=== PATIENT | female | born 1950 | race Hispanic/Latino ===

== ENCOUNTER 2018-03-08 16:46 | Emergency (ER) | payer MEDICAID ==
--- NOTE | 2018-03-08 17:43 | RAD ---
Date of service: 03/08/2018 PROCEDURE: Radiographs of the Lumbar Spine. HISTORY: Back pain COMPARISON: No prior. FINDINGS: BONES: There is mild dextrocurvature in the lumbar spine. There is normal alignment of the lumbar vertebral bodies. There is normal lumbar lordosis. There is no acute fracture. There is diffuse bone demineralization. DISC SPACES: There is multilevel degenerative disc disease with anterior osteophytes, reduced disc heights and multilevel facet arthropathy, worse at L4-5. OTHER FINDINGS: No pathologic soft tissue calcifications. Both sacroiliac joints are normal. IMPRESSION: No acute fracture, spondylolysis or spondylolisthesis. Multilevel degenerative disc disease, worse at L4-5.
--- NOTE | 2018-03-08 18:32 | ED PDOC ---
HPI: Back Chief Complaint (Provider): Back Pain History Per: Patient History/Exam Limitations: no limitations Onset/Duration Of Symptoms: Days (x1 week) Current Symptoms Are (Timing): Still Present Additional Complaint(s): 67 year old female presents to the ED via EMS for evaluation of back pain. Patient states one week ago she was bent over sweeping and immediately felt pain in her lower back, which has progressively worsened, now radiating into both legs. She notes she has a hx of herniated discs, but has not seen a specialist for it as her back specialist years ago. 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 Additionally, she reports that 2-3 days before the pain began, she developed dysuria. Otherwise, denies hematuria, incontinence, trauma, abdominal pain, and fever. PMD: none provided <Stephen Sanchez - Last Filed: 03/08/18 18:51> <Sherry Law F - Last Filed: 03/10/18 18:25> Time Seen by Provider: 03/08/18 16:54 Chief Complaint (Nursing): Back Pain Past Medical History Reviewed: Historical Data, Nursing Documentation, Vital Signs Vital Signs: Last Vital Signs Temp 98 F 03/08/18 16:48 Pulse 64 03/08/18 16:48 Resp 16 03/08/18 16:48 BP 132/59 L 03/08/18 16:48 Pulse Ox 100 03/08/18 16:48 - Medical History PMH: Anxiety, Asthma, Back Problems, Gastritis (no medications ), HTN, Kidney Stones, Obstructive Bowel Denies: Chronic Kidney Disease - Surgical History Surgical History: Cholecystectomy - Family History Family History: States: Hypertension - Social History Current smoker - smoking cessation education provided: No Alcohol: None Drugs: Denies <Stephen Sanchez E - Last Filed: 03/08/18 18:51> Vital Signs: Last Vital Signs Temp 97.9 F 03/08/18 19:07 Pulse 67 03/08/18 19:07 Resp 15 03/08/18 19:07 BP 129/85 03/08/18 19:07 Pulse Ox 97 03/08/18 19:07 <Sherry Law F - Last Filed: 03/10/18 18:25> - Home Medications Home Medications: Ambulatory Orders Medication Instructions Recorded Cyclobenzaprine [Cyclobenzaprine 10 mg PO Q8 PRN #10 tab 03/08/18 HCl] RX: Naproxen [Naprosyn] 500 mg PO BID PRN #10 tab 03/08/18 Sulfamethoxazole/Trimethoprim 1 tab PO BID #14 tab 03/08/18 [Bactrim DS 800 mg-160 mg] - Allergies Allergies/Adverse Reactions: Allergies Allergy/AdvReac Type Severity Reaction Status Date / Time codeine AdvReac NAUSEA Verified 03/08/18 16:47 Supervising Attending Note - Attestation: I have personally seen and examined this patient.: No I have reviewed all pertinent clinical information: Yes <Sherry Law F - Last Filed: 03/10/18 18:25> Review of Systems ROS Statement: Except As Marked, All Systems Reviewed And Found Negative Constitutional: Negative for: Fever Gastrointestinal: Negative for: Abdominal Pain Genitourinary Female: Positive for: Dysuria. Negative for: Incontinence, Hematuria Musculoskeletal: Positive for: Back Pain (lower, radiating to both legs) <Stephen Sanchez E - Last Filed: 03/08/18 18:51> Physical Exam - Reviewed Nursing Documentation Reviewed: Yes Vital Signs Reviewed: Yes - Physical Exam Appears: Positive for: In Acute Distress (minimal painful distress) Skin: Positive for: Normal Color, Warm, Dry. Negative for: Rash Cardiovascular/Chest: Positive for: Regular Rate, Rhythm Respiratory: Positive for: Normal Breath Sounds. Negative for: Respiratory Distress Gastrointestinal/Abdominal: Positive for: Normal Exam, Soft. Negative for: Tenderness Back: Positive for: Normal Inspection, Other (left sided paralumbar tenderness). Negative for: L CVA Tenderness, R CVA Tenderness, Vertebral Tenderness <Stephen Sanchez E - Last Filed: 03/08/18 18:51> - ECG O2 Sat by Pulse Oximetry: 100 (RA) Pulse Ox Interpretation: Normal - Progress ED Course And Treament: LS spine x-ray: No acute fracture, spondylolysis or spondylolisthesis. Multilevel degenerative disc disease, worse at L4-5. Pt. and family informed of results. Advised to f/u with PMD. <Stephen Sanchez E - Last Filed: 03/08/18 18:51> Medical Decision Making Medical Decision Making: Time: 1707 Initial Impression: back pain Initial Plan: --Fexeril 10mg PO --Toradol 30mg IM --Urine C&S --Lumbar spine XR --Urinalysis Scribe Attestation: Documented by Sabrina Goyal, acting as a scribe for Stephen Sanchez PA-C Provider Scribe Attestation: All medical record entries made by the Scribe were at my direction and personally dictated by me. I have reviewed the chart and agree that the record accurately reflects my personal performance of the history, physical exam, medical decision making, and the department course for this patient. I have also personally directed, reviewed, and agree with the discharge instructions and disposition. <Stephen Sanchez - Last Filed: 03/08/18 18:51> Disposition - Patient ED Disposition Is Patient to be Admitted: No - Disposition Disposition: Routine/Home Disposition Time: 18:50 <Stephen Sanchez - Last Filed: 03/08/18 18:51> <Sherry Law - Last Filed: 03/10/18 18:25> - Clinical Impression Clinical Impression: Low back pain, UTI (urinary tract infection) - Disposition Referrals: Supervising Floorperson Service [Outside] Condition: STABLE Additional Instructions: MARGRET PRINCE, thank you for letting us take care of you today. Your provider was Sherry Law MD and you were treated for BACK PAIN. The emergency medical care you received today was directed at your acute symptoms. If you were prescribed any medication, please fill it and take as directed. It may take several days for your symptoms to resolve. Return to the Emergency Department if your symptoms worsen, do not improve, or if you have any other problems. Please contact your doctor or call one of the physicians/clinics you have been referred to that are listed on the Patient Visit Information form that is incl uded in your discharge packet. Bring any paperwork you were given at discharge with you along with any medications you are taking to your follow up visit. Our treatment cannot replace ongoing medical care by a primary care provider outside of the emergency department. Thank you for allowing the [facility] team to be part of your care today. If you had an X-Ray or CT scan: A Radiologist will review the ED reading if any change in treatment is needed we will contact you. If you had a blood, urine, or wound culture: It will take several days for the results, if any change in treatment is needed we will contact you. If you had an STI test: It will take 48 hours for the results. Please call after 1 week if you have not heard back. Prescriptions: Cyclobenzaprine [Cyclobenzaprine HCl] 10 mg PO Q8 PRN #10 tab PRN Reason: Muscle Spasm RX: Naproxen [Naprosyn] 500 mg PO BID PRN #10 tab PRN Reason: Pain Sulfamethoxazole/Trimethoprim [Bactrim DS 800 mg-160 mg] 1 tab PO BID #14 tab Instructions: Low Back Pain (DC), Urinary Tract Infection, Adult (DC) Forms: [employer]elect (Canadian) Print Language: TRINIDADIAN
[2018-03-08 18:42] LABS: SQUAMOUS EPITHIAL 3 /hpf (0-5); URINE BACTERIA OCC (<OCC); URINE BILIRUBIN NEGATIVE (NEGATIVE); URINE BLOOD NEGATIVE (NEGATIVE); URINE CLARITY CLOUDY (Clear); URINE COLOR YELLOW (YELLOW); URINE GLUCOSE (UA) NEG (Normal); URINE LEUKOCYTE ESTERASE LARGE Leu/uL (Negative); URINE PROTEIN 30 mg/dL (NEGATIVE); URINE UROBILINOGEN 0.2-1.0 mg/dL (0.2-1.0); WBC CLUMPS FEW /hpf
[2018-03-08 19:09] VITALS: BP 129/85; PULSE 67; RESP 15; TEMP 97.9; O2SAT 97
== END 2018-03-08 19:08 | disposition home or self-care (01) ==
LOC: H.ER 16:46
DX: N39.0 Urinary tract infection, site not specified (principal); M54.5 Low back pain; Z88.5 Allergy status to narcotic agent
CPT/HCPCS: 72100; 81003; 87086; 96372; 99283; J1885

== ENCOUNTER 2018-07-04 10:41 | Emergency (ER) | payer MEDICAID ==
[2018-07-04 11:22] VITALS: BMI 47.4
[2018-07-04 12:26] LABS: BASO # 0.1 K/uL (0.0-0.2); BASO % 1.8 % (0.0-2.0); EOS # 0.6 K/uL (0.0-0.7); EOS % 9.7 % (0.0-4.0); HEMOGLOBIN 9.9 g/dL (12.0-16.0); LYMPH # 2.2 K/uL (1.0-4.3); LYMPH % 34.2 % (20.0-40.0); MEAN CELL VOLUME 88.5 fl (81.0-99.0); MEAN CORPUSCULAR HEMOGLOBIN 29.7 pg (27.0-31.0); MEAN CORPUSCULAR HGB CONC 33.5 g/dL (33.0-37.0); MEAN PLATELET VOLUME 9.2 fl (7.2-11.7); MONO % 15.9 % (0.0-10.0); NEUT # 2.4 K/uL (1.8-7.0); NEUT % 38.4 % (50.0-75.0); NRBC % 0.2 % (0.0-0.0); RBC 3.35 Mil/uL (3.80-5.20); WHITE BLOOD COUNT 6.3 K/uL (4.8-10.8)
[2018-07-04 12:33] LABS: ALBUMIN 3.7 g/dL (3.5-5.0); ALT/SGPT 21 U/L (9-52); AST/SGOT 26 U/L (14-36); BLOOD UREA NITROGEN 28 mg/dl (7-17); CALCIUM 9.2 mg/dL (8.4-10.2); GFR NON-AFRICAN AMERICAN 37
[2018-07-04 12:43] LABS: ACETAMINOPHEN < 10.0 ug/ml (10.0-30.0); SALICYLATE < 1.0 mg/dl
[2018-07-04 13:27] LABS: SQUAMOUS EPITHIAL 1 /hpf (0-5); URINE BILIRUBIN NEGATIVE (NEGATIVE); URINE BLOOD NEGATIVE (NEGATIVE); URINE CLARITY CLEAR (Clear); URINE COLOR YELLOW (YELLOW); URINE GLUCOSE (UA) NEG (NEGATIVE); URINE HYALINE CAST 0-2 /hpf (0-2); URINE LEUKOCYTE ESTERASE NEG Leu/uL (Negative); URINE PROTEIN NEGATIVE (NEGATIVE); URINE UROBILINOGEN 0.2-1.0 mg/dL (0.2-1.0)
[2018-07-04 13:49] LABS: BARBITURATES, UR NEGATIVE (NEGATIVE); BENZODIAZEPINES, UR NEGATIVE (NEGATIVE); OPIATES, UR NEGATIVE (NEGATIVE); PHENCYCLIDINE, UR NEGATIVE (NEGATIVE)
--- NOTE | 2018-07-04 14:15 | ED PDOC ---
HPI: General Adult Time Seen by Provider: 07/04/18 11:13 Chief Complaint (Nursing): Psychiatric Evaluation Chief Complaint (Provider): Difficulty sleeping History Per: Patient History/Exam Limitations: no limitations Onset/Duration Of Symptoms: Hrs Current Symptoms Are (Timing): Better Additional Complaint(s): 68 year old female with history of depression and HTN presents to the ED with family for an evaluation of difficulty sleeping. Patient report she takes Ambien and unsure if she took the wrong medication or took Ambien with other medication, unsure of the name. She has difficulty sleeping currently. She was crying on her way here because she did not want to come here. Otherwise, she denies HI/SI. She feels sleepy now. PMD: Angeli Fletcher Past Medical History Reviewed: Historical Data, Nursing Documentation, Vital Signs - Medical History PMH: Anxiety, Asthma, Back Problems, Depression, Gastritis (no medications ), HTN, Kidney Stones, Obstructive Bowel Denies: Chronic Kidney Disease - Surgical History Surgical History: Cholecystectomy - Family History Family History: States: Hypertension - Social History Current smoker - smoking cessation education provided: No Alcohol: None Drugs: Denies - Home Medications Home Medications: Ambulatory Orders Medication Instructions Recorded Cyclobenzaprine [Cyclobenzaprine 10 mg PO Q8 PRN #10 tab 03/08/18 HCl] RX: Naproxen [Naprosyn] 500 mg PO BID PRN #10 tab 03/08/18 Sulfamethoxazole/Trimethoprim 1 tab PO BID #14 tab 03/08/18 [Bactrim DS 800 mg-160 mg] Cyclobenzaprine [Cyclobenzaprine 10 mg PO DAILY PRN #10 tab 03/16/18 HCl] Cyclobenzaprine [Flexeril] 1 tab PO TID PRN 03/16/18 Hydroxyzine HCl 50 mg PO DAILY 03/16/18 RX: Ibuprofen [Motrin Tab] 1 tab PO BID PRN 03/16/18 RX: Metoprolol Succinate 1 tab PO DAILY 03/16/18 [Kapsp[place] Sprinkle] RX: Naproxen 500 mg PO BID PRN #20 tab 03/16/18 RX: Naproxen [Naprosyn] 1 tab PO BID 03/16/18 Sertraline HCl 1 tab PO BID 03/16/18 Sulfamethoxazole/Trimethoprim 1 tab PO BID 03/16/18 [Bactrim DS Tab] Zolpidem [Ambien] 1 tab PO HS PRN 03/16/18 Ciprofloxacin [Cipro] 500 mg PO BID #6 tab 03/19/18 - Allergies Allergies/Adverse Reactions: Allergies Allergy/AdvReac Type Severity Reaction Status Date / Time codeine AdvReac NAUSEA Verified 03/17/18 11:21 Review of Systems ROS Statement: Except As Marked, All Systems Reviewed And Found Negative Constitutional: Positive for: Other (sleep deprivation). Negative for: Fever, Chills Cardiovascular: Negative for: Chest Pain Respiratory: Negative for: Shortness of Breath Gastrointestinal: Negative for: Abdominal Pain Neurological: Negative for: Weakness, Numbness Psych: Negative for: Suicidal ideation, Other (homicidal ideation) Physical Exam - Reviewed Nursing Documentation Reviewed: Yes Vital Signs Reviewed: Yes - Physical Exam Appears: Positive for: Non-toxic, No Acute Distress Head Exam: Positive for: ATRAUMATIC, NORMAL INSPECTION, NORMOCEPHALIC Skin: Positive for: Normal Color, Warm, Dry. Negative for: Rash Eye Exam: Positive for: EOMI, Normal appearance, PERRL ENT: Positive for: Normal ENT Inspection Neck: Positive for: Normal, Painless ROM, Supple. Negative for: Decreased ROM Cardiovascular/Chest: Positive for: Regular Rate, Rhythm. Negative for: Murmur Respiratory: Positive for: Normal Breath Sounds. Negative for: Decreased Breath Sounds, Respiratory Distress Gastrointestinal/Abdominal: Positive for: Normal Exam, Soft. Negative for: Tenderness Back: Positive for: Normal Inspection Extremity: Positive for: Normal ROM. Negative for: Tenderness, Pedal Edema, Deformity Neurologic/Psych: Positive for: Alert, Oriented (x3) - Laboratory Results Result Diagrams: 07/04/18 12:10 07/04/18 12:10 Lab Results: Total Bilirubin 0.4 mg/dl (0.2-1.3) 07/04/18 12:10 AST 26 U/L (14-36) 07/04/18 12:10 ALT 21 U/L (9-52) 07/04/18 12:10 Alkaline Phosphatase 68 U/L (38-126) 07/04/18 12:10 Total Protein 7.5 G/DL (6.3-8.2) 07/04/18 12:10 Albumin 3.7 g/dL (3.5-5.0) 07/04/18 12:10 Globulin 3.8 gm/dL (2.2-3.9) 07/04/18 12:10 Albumin/Globulin Ratio 1.0 (1.0-2.1) 07/04/18 12:10 Urine Color Yellow (YELLOW) 07/04/18 12:19 Urine Clarity Clear (Clear) 07/04/18 12:19 Urine pH 5.0 (5.0-8.0) 07/04/18 12:19 Ur Specific [place] 1.014 (1.003-1.030) 07/04/18 12:19 Urine Protein Negative mg/dL (NEGATIVE) 07/04/18 12:19 Urine Glucose (UA) Neg mg/dL (NEGATIVE) 07/04/18 12:19 Urine Ketones Negative mg/dL (NEGATIVE) 07/04/18 12:19 Urine Blood Negative (NEGATIVE) 07/04/18 12:19 Urine Nitrate Negative (NEGATIVE) 07/04/18 12:19 Urine Bilirubin Negative (NEGATIVE) 07/04/18 12:19 Urine Urobilinogen 0.2-1.0 mg/dL (0.2-1.0) 07/04/18 12:19 Ur Leukocyte Esterase Neg July/uL (Negative) 07/04/18 12:19 Urine RBC (Auto) < 1 /hpf (0-3) 07/04/18 12:19 Urine Microscopic WBC < 1 /hpf (0-5) 07/04/18 12:19 Ur Squamous Epith Cells 1 /hpf (0-5) 07/04/18 12:19 Hyaline Casts 0-2 /hpf (0-2) 07/04/18 12:19 - ECG Pulse Ox Interpretation: Normal Medical Decision Making Medical Decision Making: Time: 1203 Impression: possible overdose with sedatives Plan: --EKG --Acetaminophen --Alcohol serum --CMP --Drug screen, urine --Salicylate --Crisis evaluation --CBC w/ Differential --UA --Reevaluation 1330 UDS negative urinalysis reviewed and no acute findings. Labs reviewed, significant for mild anemia. 1520 Patient pending crisis evaluation 1600 Patient signed out to Dr. Valverde pending crisis evaluation and final dispo.\ Vital signs are stable. Labs reviewed. In my opinion there are no current acute medical conditions that contraindicate the placement of this patient in a psychiatric unit. Scribe Attestation: Documented by Sandeep Molina, acting as a scribe for Vinnie Duff MD. Provider Scribe Attestation: All medical record entries made by the Scribe were at my direction and personally dictated by me. I have reviewed the chart and agree that the record accurately reflects my personal performance of the history, physical exam, medical decision making, and the department course for this patient. I have also personally directed, reviewed, and agree with the discharge instructions and disposition. Disposition - Clinical Impression Clinical Impression: Depression, Dehydration - Patient ED Disposition Is Patient to be Admitted: Transfer of Care - Disposition Referrals: Angeli Fletcher [Medical Doctor] - 07/05/18 Disposition: Transfer of Care Disposition Time: 16:08 Condition: STABLE Instructions: Dehydration, Adult (DC), Depression, Adult (DC) Patient Signed Over To: Chula Valverde
--- NOTE | 2018-07-04 16:09 | ED PDOC ---
- Laboratory Results Result Diagrams: 07/04/18 12:10 07/04/18 12:10 Lab Results: Total Bilirubin 0.4 mg/dl (0.2-1.3) 07/04/18 12:10 AST 26 U/L (14-36) 07/04/18 12:10 ALT 21 U/L (9-52) 07/04/18 12:10 Alkaline Phosphatase 68 U/L (38-126) 07/04/18 12:10 Total Protein 7.5 G/DL (6.3-8.2) 07/04/18 12:10 Albumin 3.7 g/dL (3.5-5.0) 07/04/18 12:10 Globulin 3.8 gm/dL (2.2-3.9) 07/04/18 12:10 Albumin/Globulin Ratio 1.0 (1.0-2.1) 07/04/18 12:10 Urine Color Yellow (YELLOW) 07/04/18 12:19 Urine Clarity Clear (Clear) 07/04/18 12:19 Urine pH 5.0 (5.0-8.0) 07/04/18 12:19 Ur Specific [place] 1.014 (1.003-1.030) 07/04/18 12:19 Urine Protein Negative mg/dL (NEGATIVE) 07/04/18 12:19 Urine Glucose (UA) Neg mg/dL (NEGATIVE) 07/04/18 12:19 Urine Ketones Negative mg/dL (NEGATIVE) 07/04/18 12:19 Urine Blood Negative (NEGATIVE) 07/04/18 12:19 Urine Nitrate Negative (NEGATIVE) 07/04/18 12:19 Urine Bilirubin Negative (NEGATIVE) 07/04/18 12:19 Urine Urobilinogen 0.2-1.0 mg/dL (0.2-1.0) 07/04/18 12:19 Ur Leukocyte Esterase Neg July/uL (Negative) 07/04/18 12:19 Urine RBC (Auto) < 1 /hpf (0-3) 07/04/18 12:19 Urine Microscopic WBC < 1 /hpf (0-5) 07/04/18 12:19 Ur Squamous Epith Cells 1 /hpf (0-5) 07/04/18 12:19 Hyaline Casts 0-2 /hpf (0-2) 07/04/18 12:19 - ECG Pulse Ox Interpretation: Normal Medical Decision Making Medical Decision Makin Patient signed out to me pending crisis evaluation, final disposition. 1610 Evaluated by Tatiana IGLESIAS who d/w Dr Christiano Barragan control specialist. Pt stable for discharge. Scribe Attestation: Documented by Maryjane Tapia acting as a scribe for Chula Valverde MD. Provider Attestation: All medical record entries made by the Scribe were at my direction and personally dictated by me. I have reviewed the chart and agree that the record accurately reflects my personal performance of the history, physical exam, medical decision making, and the department course for this patient. I have also personally directed, reviewed, and agree with the discharge instructions and disposition. Disposition Counseled Patient/Family Regarding: Studies Performed, Diagnosis, Need For Followup - Clinical Impression Clinical Impression: Depression, Dehydration - POA Present On Arrival: None - Disposition Referrals: Angeli Fletcher [Medical Doctor] - 07/05/18 Disposition: Routine/Home Disposition Time: 16:10 Condition: STABLE Instructions: Depression, Adult (DC), Dehydration, Adult (DC)
[2018-07-04 16:18] VITALS: PULSE 65; RESP 16
[2018-07-04 16:20] VITALS: BP 136/57; TEMP 98.5; O2SAT 99
--- NOTE | 2018-07-04 20:23 | CARD ---
APPROVED REPORT Date of service: 07/04/2018 EKG Measurement Heart [id number] <Conclusion> Normal sinus rhythm Normal ECG
== END 2018-07-04 16:32 | disposition home or self-care (01) ==
LOC: H.ER 10:41
DX: F32.9 Major depressive disorder, single episode, unspecified (principal); E86.0 Dehydration; I10 Essential (primary) hypertension; J45.909 Unspecified asthma, uncomplicated; Z88.5 Allergy status to narcotic agent; D64.9 Anemia, unspecified; Z86.59 Personal history of other mental and behavioral disorders